=== PATIENT | male | born 1955 | race Caucasian/White ===

== ENCOUNTER 2016-09-27 15:48 | Emergency (ER) | payer OTHER ==
[2016-09-27 15:56] LABS: EOSINOPHIL (%) 3.4 % (0-5); EOSINOPHIL COUNT 0.3 K/uL (0-0.3); HEMATOCRIT 42.7 % (38.0-50.0); IMMATURE GRANULOCYTE (%) 0.4 % (0.0-0.7); INSTRUMENT ABS NEUTROPHIL CT 4.7 K/uL; LYMPHOCYTE COUNT 2.5 K/uL (1.0-2.8); MCH 28.4 PG (29.0-34.0); MCV 86.1 FL (86-99); MEAN PLAT.VOLUME 9.6 uM^3 (9.0-12.4); MONOCYTE COUNT 0.8 K/uL (0-0.8); NEUTROPHIL (%) 56.3 % (45-76); NEUTROPHIL COUNT 4.7 K/uL (1.8-6.4); PLATELET COUNT 278 K/uL (156-360); RBC DIS.WIDTH-CV 13.5 % (11.8-14.6); RBC DIS.WIDTH-SD 41.9 % (39-53); RED BLOOD COUNT 4.96 M/uL (4.00-5.50); WHITE BLOOD COUNT 8.3 K/uL (4.1-10.2)
[2016-09-27 16:06] LABS: CHLORIDE 110 mEq/L (99-109); POTASSIUM 3.7 mEq/L (3.7-5.4); SODIUM 144 mEq/L (136-147)
[2016-09-27 16:08] LABS: GLUCOSE 131 mg/dL (70-99)
[2016-09-27 16:10] LABS: ANION GAP 11 MEQ/L (2-14)
[2016-09-27 16:13] LABS: UREA NITROGEN (BUN) 16 mg/dL (9-23)
[2016-09-27 16:15] LABS: LIPASE 41 U/L (1.0-51.0)
[2016-09-27 16:16] LABS: GFR ESTIMATE (CALCULATED) > 59 mL/min/
[2016-09-27 17:20] LABS: ADD MIUA? NO; BILIRUBIN NEGATIVE; BLOOD NEGATIVE; COLOR YELLOW ((YELLOW)); GLUCOSE (STRIP) NEGATIVE; KETONES NEGATIVE; LEUKOCYTES NEGATIVE; NITRITE NEGATIVE; PROTEIN (STRIP) 30; UCUL ADDED? NO; UROBILINOGEN 0.2 MG/DL (0.2-1.0)
[2016-09-27] MEDS ORDERED: NORCO 5/3251 TABLET PO (17:25)
[2016-09-27 17:40] LABS: SPECIFIC GRAVITY 1.068 (1.000-1.030)
== END 2016-09-27 17:44 | disposition home or self-care (01) ==
LOC: TRA 15:48
PROVIDERS: Emergency Medicine
DX: S30.1XXA Contusion of abdominal wall, initial encounter (principal); S40.811A Abrasion of right upper arm, initial encounter; S30.811A Abrasion of abdominal wall, initial encounter; S80.812A Abrasion, left lower leg, initial encounter; W11.XXXA Fall on and from ladder, initial encounter; N28.89 Other specified disorders of kidney and ureter
CPT/HCPCS: 71260; 72129; 72132; 74177; 80048; 81003; 82150; 83690; 85025; 86900; 86901; 99281; 99285; G0480